=== PATIENT | female | born 1950 | race American Indian/Alaskan Native ===

== ENCOUNTER 2017-03-14 10:04 | Outpatient (CLI) | payer MEDICARE | END 2017-03-14 10:05 | disposition home or self-care (01) | LOC: WOUND 10:04 | PROVIDERS: ATTEND Nurse Practitioner | DX: T23.241A Burn of second degree of multiple right fingers (nail), including thumb, initial encounter (principal); T23.261A Burn of second degree of back of right hand, initial encounter; X10.2XXA Contact with fats and cooking oils, initial encounter; Y92.89 Other specified places as the place of occurrence of the external cause; Y93.89 Activity, other specified; Y99.8 Other external cause status; Z90.710 Acquired absence of both cervix and uterus; I10 Essential (primary) hypertension; G62.9 Polyneuropathy, unspecified; E78.5 Hyperlipidemia, unspecified; F17.200 Nicotine dependence, unspecified, uncomplicated | CPT/HCPCS: 97597; G0463 ==

== ENCOUNTER 2017-03-21 13:00 | Outpatient (CLI) | payer MEDICARE ==
[2017-03-21] MEDS ORDERED: XYLOCAINE TOPICAL 2% 5ML ONE (13:52)
[2017-03-21] MEDS ORDERED: XYLOCAINE TOPICAL 2% 5ML TP ONE (14:02)
== END 2017-03-21 13:01 | disposition home or self-care (01) ==
LOC: WOUND 13:00
PROVIDERS: ATTEND Nurse Practitioner
DX: T23.241D Burn of second degree of multiple right fingers (nail), including thumb, subsequent encounter (principal); T23.261D Burn of second degree of back of right hand, subsequent encounter; E78.5 Hyperlipidemia, unspecified; I10 Essential (primary) hypertension; G62.9 Polyneuropathy, unspecified; F17.200 Nicotine dependence, unspecified, uncomplicated; Z90.49 Acquired absence of other specified parts of digestive tract; X10.2XXD Contact with fats and cooking oils, subsequent encounter

== ENCOUNTER 2017-03-28 10:43 | Outpatient (CLI) | payer MEDICARE ==
[2017-03-28] MEDS ORDERED: XYLOCAINE TOPICAL 2% 5ML ONE (11:03)
[2017-03-28] MEDS ORDERED: XYLOCAINE TOPICAL 2% 5ML TP ONE (11:11)
== END 2017-03-28 10:44 | disposition home or self-care (01) ==
LOC: WOUND 10:43
PROVIDERS: ATTEND Surgery
DX: T23.301D Burn of third degree of right hand, unspecified site, subsequent encounter (principal); T31.0 Burns involving less than 10% of body surface; E78.00 Pure hypercholesterolemia, unspecified; I10 Essential (primary) hypertension; G62.9 Polyneuropathy, unspecified; F17.200 Nicotine dependence, unspecified, uncomplicated; Z90.710 Acquired absence of both cervix and uterus; X08.8XXD Exposure to other specified smoke, fire and flames, subsequent encounter

== ENCOUNTER 2017-04-04 13:03 | Outpatient (CLI) | payer MEDICARE ==
[2017-04-04] MEDS ORDERED: XYLOCAINE TOPICAL 4% TP ONE (13:12)
== END 2017-04-04 13:04 | disposition home or self-care (01) ==
LOC: WOUND 13:03
PROVIDERS: ATTEND Nurse Practitioner
DX: T23.301D Burn of third degree of right hand, unspecified site, subsequent encounter (principal); T23.3 Burn of third degree of wrist and hand; T31.0 Burns involving less than 10% of body surface; E78.00 Pure hypercholesterolemia, unspecified; G62.9 Polyneuropathy, unspecified; I10 Essential (primary) hypertension; F17.200 Nicotine dependence, unspecified, uncomplicated; Z90.49 Acquired absence of other specified parts of digestive tract; Z90.710 Acquired absence of both cervix and uterus; X10.2XXD Contact with fats and cooking oils, subsequent encounter

== ENCOUNTER 2017-04-11 11:50 | Outpatient (CLI) | payer MEDICARE | END 2017-04-11 11:51 | disposition home or self-care (01) | LOC: WOUND 11:50 | PROVIDERS: ATTEND Nurse Practitioner | DX: T23.261D Burn of second degree of back of right hand, subsequent encounter (principal); I10 Essential (primary) hypertension; E78.00 Pure hypercholesterolemia, unspecified; G62.9 Polyneuropathy, unspecified; F17.200 Nicotine dependence, unspecified, uncomplicated; Z90.710 Acquired absence of both cervix and uterus; X10.2XXD Contact with fats and cooking oils, subsequent encounter | CPT/HCPCS: 99212; G0463 ==